=== PATIENT | female | born 1960 | race Caucasian/White ===

== ENCOUNTER 2020-06-02 09:22 | Outpatient (CLI) | payer OTHER, SELFPAY ==
--- NOTE | ~2020-06-02 | XR_ITS ---
XR abdomen/kub 1V 06/02/2020 10:27 Indication: Left lower quadrant pain Procedure: KUB Comparison: No prior studies for comparison. Findings: Bowel gas pattern is nonobstructive. There are cholecystectomy clips. No abnormal calcifica tions. There is lumbar spondylosis with levoscoliosis. Impression: 1: No acute abdominal abnormality. Reviewed, dictated and finalized at location A. Impression: 1: No acute abdominal abnormality.
== END 2020-06-02 09:23 | disposition home or self-care (01) ==
LOC: ANHIMG 09:28
PROVIDERS: Visit Provider Internal Medicine Gastroenterology
DX: R10.32 Left lower quadrant pain (principal); K21.9 Gastro-esophageal reflux disease without esophagitis; K92.2 Gastrointestinal hemorrhage, unspecified
CPT/HCPCS: 74018

== ENCOUNTER 2022-10-05 09:27 | Outpatient (CLI) | payer OTHER, SELFPAY ==
--- NOTE | ~2022-10-05 | MR_ITS ---
EXAMINATION: MR knee RT wo con DATE: 10/05/2022 10:16 INDICATION: Right knee pain. TECHNIQUE: Magnetic resonance imaging (MRI) of the right knee was performed without intravenous contr ast. Sequences included axial PD-weighted FS FSE, coronal PD-weighted FSE and PD-weighted FS FSE, sag ittal PD-weighted FSE, and sagittal T2-weighted FS FSE. COMPARISON: None. FINDINGS: Medial compartment: Medial meniscus is normal. There is cartilage surface irregularity of tibial condyle. Femoral cartila ge is normal. Lateral compartment: There is an undersurface horizontal tear of lateral meniscus of the junction of the body and posterio r horn. There is shallow partial-thickness cartilage loss of tibial condyle, worst at the central art icular surface. There is cartilage surface irregularity of femoral condyle. Patellofemoral compartment: There is full-thickness cartilage loss of patellar medial facet, median ridge, and lateral facet with cortical remodeling and mild subchondral edema-like marrow signal intensity. Trochlear cartilage is normal. Ligaments and tendons: The anterior and posterior cruciate ligaments are normal. There are changes of prior sprains of media l collateral ligament and fibular collateral ligament characterized by thickening and increased signa l intensity proximally. There is mild patellar tendinopathy. Fluid: There is no knee joint effusion. There is a multiloculated ganglion cyst posterior to posterior cruci ate ligament measuring 18 x 11 x 26 mm. There is mild prepatellar bursitis. IMPRESSION: 1. Severe chondrosis of patellofemoral compartment and mild chondrosis of medial and lateral compartm ents. 2. Tear of lateral meniscus. 3. Ganglion cyst posterior to posterior cruciate ligament. Reviewed, dictated and finalized at location A. [employer] IMPRESSION: 1. Severe chondrosis of patellofemoral compartment and mild chondrosis of media l and lateral compartments. 2. Tear of lateral meniscus. 3. Ganglion cyst posterior to posterior cruciate ligament.
== END 2022-10-05 09:28 | disposition home or self-care (01) ==
PROVIDERS: Visit Provider Physician Assistant
DX: S83.281A Other tear of lateral meniscus, current injury, right knee, initial encounter (principal); X58.XXXA Exposure to other specified factors, initial encounter; M67.461 Ganglion, right knee
CPT/HCPCS: 73721